=== PATIENT | female | born 1955 | race Caucasian/White ===

== ENCOUNTER 2024-09-11 11:34 | Observation (INO) | payer MEDICARE, BC ==
[~2024-09-11] VITALS: Ht 170.2 cm; Wt 113.1 kg
[2024-09-11] MEDS ORDERED: PANT40TA29 PO (12:33)
[2024-09-11] MEDS ORDERED: CLAR10CA3 PO (12:33)
[2024-09-11] MEDS ORDERED: DULO1CAP6 PO (12:33)
[2024-09-11] MEDS ORDERED: VITAD400CA PO (12:33)
[2024-09-11] MEDS ORDERED: AZEL137S8 NARES (12:33)
[2024-09-11] MEDS ORDERED: ZONI100C67 PO (12:33)
[2024-09-11] MEDS: BOOSTRIX VACCINE (TETANUS/DIPHTH/ACEL. PERTUSSIS) 0.5ML SYR IM ONE (13:19)
[2024-09-11] MEDS: ONDANSETRON 4MG 2ML VIAL IV ONE (14:46)
[2024-09-11] MEDS: MORPHINE 4 MG/ML 1ML VIAL IV ONE (14:47)
[2024-09-11] MEDS ORDERED: HOME MED LIST COMPLETE! XX SCH (16:25)
[2024-09-11] MEDS ORDERED: LORATADINE 10 MG TAB PO PRN (16:40)
[2024-09-11] MEDS ORDERED: MORPHINE 4 MG/ML 1ML VIAL IV PRN (16:40)
[2024-09-11] MEDS ORDERED: PILL CUTTER 1 EACH XX PRN (16:45)
[2024-09-11 17:28] LABS: HEMATOCRIT 43.5 % (36.0-47.0); HEMOGLOBIN 14.2 g/dl (12.0-15.5); MEAN CORPUSCULAR HEMOGLOBIN 29.9 pg (27.0-33.0); MEAN CORPUSCULAR HGB CONC 32.6 g/dl (32.0-36.5); MEAN CORPUSCULAR VOLUME 91.6 fl (80.0-96.0); PLATELET COUNT, AUTOMATED 268 10^3/uL (150-450); RED BLOOD COUNT 4.75 10^6/uL (4.00-5.40); WHITE BLOOD COUNT 10.4 10^3/uL (4.0-10.0)
[2024-09-11] MEDS: ACETAMINOPHEN 325 MG TAB PO PRN (17:30)
[2024-09-11 17:45] LABS: CALCIUM LEVEL 9.5 MG/DL (8.3-10.6); CREATININE FOR GFR 0.8 MG/DL (0.55-1.30); GLOMERULAR FILTRATION RATE 79.7 (>45); POTASSIUM SERUM 4.4 MMOL/L (3.5-5.1)
[2024-09-11 18:07] LABS: LYMPHOCYTES 11 % (16-44); NEUTROPHILS 89 % (28-66); PLATELET ESTIMATE NORMAL (NORMAL)
[2024-09-11] MEDS: VITAMIN D 1,000 INTERNATIONAL UNITS TABLET PO SCH (21:09)
[2024-09-11] MEDS: DULoxetine 30MG CAPSULE (CYMBALTA) PO SCH (21:09)
[2024-09-11] MEDS: ZONISAMIDE 100 MG CAP (ZONEGRAN) PO SCH (21:09)
[2024-09-11] MEDS: AZELASTINE 137MCG NASAL SPY 30 ML (ASTELIN) SCH (21:10)
[2024-09-11 23:00] VITALS: BP 131/86; TEMP 97.3; O2SAT 96
[2024-09-12] VITALS (9 sets, daily range): BP systolic 117–156; BP diastolic 61–87; TEMP 97.3–97.9; O2SAT 91–95
[2024-09-12 06:39] LABS: BASO % 0.4 % (0.0-1.0); HEMATOCRIT 40.1 % (36.0-47.0); LYMPH # 1.2 10^3/uL (1.5-5.0); LYMPH % 21.8 % (24.0-44.0); MEAN CORPUSCULAR HEMOGLOBIN 29.7 pg (27.0-33.0); MEAN CORPUSCULAR HGB CONC 32.4 g/dl (32.0-36.5); MEAN CORPUSCULAR VOLUME 91.6 fl (80.0-96.0); MONO # 0.8 10^3/uL (0.0-0.8); MONO % 14.5 % (2.0-8.0); NEUTROPHILS # 3.3 10^3/uL (1.5-8.5); NEUTROPHILS % 62.9 % (36.0-66.0); PLATELET COUNT, AUTOMATED 244 10^3/uL (150-450); RED BLOOD COUNT 4.38 10^6/uL (4.00-5.40); WHITE BLOOD COUNT 5.3 10^3/uL (4.0-10.0)
[2024-09-12 06:45] LABS: CREATININE FOR GFR 0.91 MG/DL (0.55-1.30); GLOMERULAR FILTRATION RATE 68.3 (>45); POTASSIUM SERUM 4.1 MMOL/L (3.5-5.1)
[2024-09-12] MEDS: PANTOPRAZOLE 40MG TAB (PROTONIX) PO SCH (08:20)
[2024-09-12] MEDS ORDERED: propofoL 200 MG/20 ML VIAL As Ordered ONE (12:54)
[2024-09-12] MEDS ORDERED: LIDOCAINE 2% 100MG/5ML SDV (FOR ANES.) As Ordered ONE (12:54)
[2024-09-12] MEDS ORDERED: ROCURONIUM BROMIDE 50MG/5ML VIAL As Ordered ONE (12:54)
[2024-09-12] MEDS ORDERED: MIDAZOLAM INJ 2MG/2ML VIAL As Ordered ONE (12:55)
[2024-09-12] MEDS ORDERED: ONDANSETRON 4MG 2ML VIAL As Ordered ONE (12:59)
[2024-09-12] MEDS ORDERED: fentaNYL 100 MCG/2 ML INJECTION As Ordered ONE (13:00)
[2024-09-12] MEDS ORDERED: ESMOLOL INJ 100MG/10ML VIAL As Ordered ONE (13:23)
[2024-09-12] MEDS: ceFAZolin SODIUM 2 GM VIAL As Ordered ONE (13:35)
[2024-09-12] MEDS ORDERED: SUGAMMADEX SODIUM 500 MG/5 ML VIAL (BRIDION) As Ordered ONE (13:44)
[2024-09-12] MEDS ORDERED: LABETALOL 100MG/20ML VIAL As Ordered ONE (13:46)
[2024-09-12] MEDS ORDERED: KETOROLAC 30 MG/ML 1ML VIAL As Ordered ONE (14:00)
[2024-09-12] MEDS ORDERED: fentaNYL 100 MCG/2 ML INJECTION IV PRN (14:10)
[2024-09-12] MEDS: BACITRACIN OINTMENT 30GM TUBE As Ordered ONE (14:10)
[2024-09-12] MEDS: HYDROMORPHONE HCL 0.5 MG/ 0.5 ML SYRINGE IV PRN (14:39)
[2024-09-12] MEDS: ONDANSETRON 4MG 2ML VIAL IV PRN (14:40)
[2024-09-12] MEDS: oxyCODONE 5MG TAB PO PRN (14:40)
[2024-09-12] MEDS: LR 1,000 ML IV SCH (15:40)
[2024-09-12] MEDS: ceFAZolin SOD 1 GM in DEXTROSE 5% (D5W) ADV/MINI-BAG 50 ML IV SCH (21:45)
[2024-09-13] VITALS: BP 127/66; TEMP 97.5; O2SAT 95
[2024-09-13 04:00] VITALS: BP 140/72; TEMP 97.5; O2SAT 95
[2024-09-13 07:19] LABS: BASO % 0.2 % (0.0-1.0); HEMATOCRIT 39.9 % (36.0-47.0); HEMOGLOBIN 12.4 g/dl (12.0-15.5); LYMPH # 1.2 10^3/uL (1.5-5.0); LYMPH % 18.5 % (24.0-44.0); MEAN CORPUSCULAR HGB CONC 31.1 g/dl (32.0-36.5); MEAN CORPUSCULAR VOLUME 93.2 fl (80.0-96.0); MONO # 0.7 10^3/uL (0.0-0.8); MONO % 11.1 % (2.0-8.0); NEUTROPHILS # 4.7 10^3/uL (1.5-8.5); PLATELET COUNT, AUTOMATED 234 10^3/uL (150-450); RED BLOOD COUNT 4.28 10^6/uL (4.00-5.40); WHITE BLOOD COUNT 6.7 10^3/uL (4.0-10.0)
[2024-09-13 07:47] LABS: CALCIUM LEVEL 8.8 MG/DL (8.3-10.6); CREATININE FOR GFR 0.97 MG/DL (0.55-1.30); GLOMERULAR FILTRATION RATE 63.3 (>45); POTASSIUM SERUM 3.8 MMOL/L (3.5-5.1)
[2024-09-13] MEDS: KETOROLAC 30 MG/ML 1ML VIAL IV PRN (10:10)
[2024-09-13 12:00] VITALS: BP 118/68; TEMP 97.7; O2SAT 95
[2024-09-13] MEDS: ENOXAPARIN 40MG/0.4ML SYRINGE (J1650 PER 10MG) SC SCH (14:21)
[2024-09-13 19:57] VITALS: BP 151/78; TEMP 97.5; O2SAT 93
[2024-09-14 04:06] VITALS: BP 137/77; TEMP 97.5; O2SAT 94
[2024-09-14 05:53] LABS: BASO % 0.4 % (0.0-1.0); HEMATOCRIT 37.7 % (36.0-47.0); LYMPH # 1.3 10^3/uL (1.5-5.0); LYMPH % 27.3 % (24.0-44.0); MEAN CORPUSCULAR HEMOGLOBIN 29.1 pg (27.0-33.0); MEAN CORPUSCULAR HGB CONC 31.8 g/dl (32.0-36.5); MEAN CORPUSCULAR VOLUME 91.5 fl (80.0-96.0); MONO # 0.5 10^3/uL (0.0-0.8); MONO % 11.6 % (2.0-8.0); NEUTROPHILS # 2.8 10^3/uL (1.5-8.5); NEUTROPHILS % 60.5 % (36.0-66.0); PLATELET COUNT, AUTOMATED 205 10^3/uL (150-450); RED BLOOD COUNT 4.12 10^6/uL (4.00-5.40); WHITE BLOOD COUNT 4.6 10^3/uL (4.0-10.0)
[2024-09-14 06:10] LABS: CALCIUM LEVEL 9.1 MG/DL (8.3-10.6); CREATININE FOR GFR 0.85 MG/DL (0.55-1.30); GLOMERULAR FILTRATION RATE 74.1 (>45); POTASSIUM SERUM 4.4 MMOL/L (3.5-5.1)
[2024-09-14 12:00] VITALS: BP 162/89; TEMP 97.3; O2SAT 96
[2024-09-14 20:26] VITALS: BP 166/97; TEMP 97.7; O2SAT 96
[2024-09-14 20:30] VITALS: BP 166/97; TEMP 97.7; O2SAT 96
[2024-09-15 03:45] VITALS: BP 153/101; TEMP 97.2; O2SAT 93
[2024-09-15 06:00] LABS: BASO % 0.5 % (0.0-1.0); HEMATOCRIT 39.2 % (36.0-47.0); HEMOGLOBIN 12.7 g/dl (12.0-15.5); LYMPH # 1.1 10^3/uL (1.5-5.0); LYMPH % 30.5 % (24.0-44.0); MEAN CORPUSCULAR HEMOGLOBIN 29.5 pg (27.0-33.0); MEAN CORPUSCULAR HGB CONC 32.4 g/dl (32.0-36.5); MEAN CORPUSCULAR VOLUME 91.2 fl (80.0-96.0); MONO # 0.5 10^3/uL (0.0-0.8); MONO % 13.1 % (2.0-8.0); NEUTROPHILS % 55.4 % (36.0-66.0); PLATELET COUNT, AUTOMATED 211 10^3/uL (150-450); WHITE BLOOD COUNT 3.7 10^3/uL (4.0-10.0)
[2024-09-15 06:23] LABS: CALCIUM LEVEL 8.7 MG/DL (8.3-10.6); CREATININE FOR GFR 0.84 MG/DL (0.55-1.30); GLOMERULAR FILTRATION RATE 75.2 (>45); POTASSIUM SERUM 4.2 MMOL/L (3.5-5.1)
[2024-09-15 09:43] VITALS: BP 153/84; TEMP 97.3; O2SAT 96
[2024-09-15 12:00] VITALS: BP 153/84; TEMP 97.3; O2SAT 96
[2024-09-15] MEDS ORDERED: MIRALAX *UNIT DOSE* 17GM PACKET PO PRN (13:50)
[2024-09-15] MEDS ORDERED: SENNA 8.6 MG TAB (SENOKOT) PO PRN (13:50)
[2024-09-15] MEDS: DOCUSATE SODIUM 100MG CAPSULE PO PRN (14:21)
[2024-09-15] MEDS ORDERED: GLUCAGON INJ 1MG VIAL SC PRN (15:15)
[2024-09-15] MEDS ORDERED: GLUCOSE 4 GM CHEW PO PRN (15:15)
[2024-09-15] MEDS ORDERED: DEXTROSE 50% 50ML SYRINGE IV PRN (15:15)
[2024-09-15] MEDS ORDERED: INSULIN LISPRO (NovoLOG) PER UNIT SC SCH ×2 (17:30→21:00)
[2024-09-15 20:53] VITALS: BP 177/86; TEMP 97.3; O2SAT 97
[2024-09-16 05:08] VITALS: BP 143/85; TEMP 97; O2SAT 95
[2024-09-16 05:52] LABS: BASO % 0.4 % (0.0-1.0); HEMOGLOBIN 12.7 g/dl (12.0-15.5); LYMPH # 1.5 10^3/uL (1.5-5.0); MEAN CORPUSCULAR HEMOGLOBIN 29.7 pg (27.0-33.0); MEAN CORPUSCULAR HGB CONC 32.6 g/dl (32.0-36.5); MEAN CORPUSCULAR VOLUME 91.1 fl (80.0-96.0); MONO # 0.6 10^3/uL (0.0-0.8); MONO % 10.5 % (2.0-8.0); NEUTROPHILS # 3.2 10^3/uL (1.5-8.5); NEUTROPHILS % 59.9 % (36.0-66.0); PLATELET COUNT, AUTOMATED 246 10^3/uL (150-450); RED BLOOD COUNT 4.28 10^6/uL (4.00-5.40); WHITE BLOOD COUNT 5.3 10^3/uL (4.0-10.0)
[2024-09-16 06:15] LABS: CALCIUM LEVEL 9.3 MG/DL (8.3-10.6); CREATININE FOR GFR 0.78 MG/DL (0.55-1.30); GLOMERULAR FILTRATION RATE 82.2 (>45); POTASSIUM SERUM 4.1 MMOL/L (3.5-5.1)
[2024-09-16 12:00] VITALS: BP 140/72; TEMP 97.7; O2SAT 94
[2024-09-16 20:20] VITALS: BP 177/98; TEMP 97.5; O2SAT 98
[2024-09-16 21:35] VITALS: BP 143/78; TEMP 97.5; O2SAT 96
[2024-09-17] VITALS (8 sets, daily range): BP systolic 118–144; BP diastolic 65–97; TEMP 97.2–97.8; O2SAT 89–95
[2024-09-17 06:05] LABS: BASO % 0.5 % (0.0-1.0); HEMATOCRIT 37.4 % (36.0-47.0); LYMPH # 1.1 10^3/uL (1.5-5.0); LYMPH % 25.9 % (24.0-44.0); MEAN CORPUSCULAR HEMOGLOBIN 29.3 pg (27.0-33.0); MEAN CORPUSCULAR HGB CONC 32.1 g/dl (32.0-36.5); MEAN CORPUSCULAR VOLUME 91.2 fl (80.0-96.0); MONO # 0.5 10^3/uL (0.0-0.8); MONO % 12.4 % (2.0-8.0); NEUTROPHILS # 2.5 10^3/uL (1.5-8.5); PLATELET COUNT, AUTOMATED 211 10^3/uL (150-450); WHITE BLOOD COUNT 4.1 10^3/uL (4.0-10.0)
[2024-09-17 06:30] LABS: CALCIUM LEVEL 9.1 MG/DL (8.3-10.6); CREATININE FOR GFR 0.8 MG/DL (0.55-1.30); GLOMERULAR FILTRATION RATE 79.7 (>45); POTASSIUM SERUM 4.1 MMOL/L (3.5-5.1)
[2024-09-17 10:09] LABS: APPEARANCE, URINE HAZY (CLEAR); BACTERIA, URINE AUTO NEGATIVE (NEGATIVE); BILIRUBIN, URINE AUTO NEGATIVE (NEGATIVE); BLOOD, URINE BLOOD NEGATIVE (NEGATIVE); COLOR, URINE YELLOW (YELLOW); GLUCOSE, URINE (UA) AUTO NEGATIVE (NEGATIVE); KETONE, URINE AUTO NEGATIVE (NEGATIVE); LEUKOCYTE ESTERASE, URINE AUTO NEGATIVE (NEGATIVE); MUCUS, URINE SMALL (NEGATIVE); NITRITE, URINE AUTO NEGATIVE (NEGATIVE); PROTEIN, URINE AUTO NEGATIVE (NEGATIVE); RBC, URINE AUTO 1 /HPF (0-3); SQUAMOUS EPITHELIAL CELL UR AU 0 /HPF (0-6); UROBILINOGEN, URINE AUTO 0.2 mg/dL (0.0-2.0); WBC, URINE AUTO 1 /HPF (0-3)
[2024-09-17] MEDS ORDERED: ACETAMINOPHEN 1000MG/100ML IV BAG As Ordered ONE (10:59)
[2024-09-17] MEDS: MIDAZOLAM INJ 2MG/2ML VIAL IV PRN (12:07)
[2024-09-17] MEDS: fentaNYL 100 MCG/2 ML INJECTION IV PRN (12:07)
[2024-09-17] MEDS: dexAMETHasone 10MG/1ML VIAL PRES.FREE PN ONE (12:10)
[2024-09-17] MEDS: ROPIvacaine 0.5% 30ML VIAL PN ONE (12:10)
[2024-09-17] MEDS: LIDOCAINE 1% SDV 5ML VIAL PN ONE (12:10)
[2024-09-17] MEDS ORDERED: HYDROmorphone HCL 2MG/ML 1ML VIAL As Ordered ONE (13:36)
[2024-09-17] MEDS: VANCOMYCIN 1000MG/20ML VIAL As Ordered ONE (15:30)
[2024-09-17] MEDS ORDERED: oxyCODONE 5MG TAB PO PRN (15:45)
[2024-09-17] MEDS ORDERED: ONDANSETRON 4MG 2ML VIAL IV PRN (15:45)
[2024-09-17] MEDS ORDERED: fentaNYL 100 MCG/2 ML INJECTION IV PRN (15:45)
[2024-09-17] MEDS: ceFAZolin SODIUM 2 GM in DEXTROSE 5% (D5W) ADV/MINI-BAG 50 ML IV SCH (22:47)
[2024-09-18] VITALS (9 sets, daily range): BP systolic 110–146; BP diastolic 58–91; TEMP 96.8–97.6; O2SAT 86–95
[2024-09-18 06:19] LABS: BASO % 0.1 % (0.0-1.0); HEMATOCRIT 38.5 % (36.0-47.0); HEMOGLOBIN 12.1 g/dl (12.0-15.5); LYMPH # 0.8 10^3/uL (1.5-5.0); LYMPH % 10.1 % (24.0-44.0); MEAN CORPUSCULAR HEMOGLOBIN 28.9 pg (27.0-33.0); MEAN CORPUSCULAR HGB CONC 31.4 g/dl (32.0-36.5); MEAN CORPUSCULAR VOLUME 92.1 fl (80.0-96.0); MONO # 0.7 10^3/uL (0.0-0.8); MONO % 9.6 % (2.0-8.0); NEUTROPHILS # 6.2 10^3/uL (1.5-8.5); NEUTROPHILS % 79.9 % (36.0-66.0); PLATELET COUNT, AUTOMATED 242 10^3/uL (150-450); RED BLOOD COUNT 4.18 10^6/uL (4.00-5.40); WHITE BLOOD COUNT 7.7 10^3/uL (4.0-10.0)
[2024-09-18 06:38] LABS: CALCIUM LEVEL 9.1 MG/DL (8.3-10.6); CREATININE FOR GFR 0.86 MG/DL (0.55-1.30); GLOMERULAR FILTRATION RATE 73.1 (>45); POTASSIUM SERUM 4.2 MMOL/L (3.5-5.1)
[2024-09-18] MEDS ORDERED: ASPI81CH33 PO (11:08)
[2024-09-18] MEDS ORDERED: ACET-897 PO (11:10)
[2024-09-18] MEDS ORDERED: IBUP-1022 PO (11:11)
[2024-09-18] MEDS ORDERED: ENOXAPARIN 40MG/0.4ML SYRINGE (J1650 PER 10MG) SC SCH (14:00)
== END 2024-09-18 14:35 | disposition home health service (06) ==
LOC: M ED 11:34 → EDBD 11:34 → INTOOBSV 16:08 → M ED INP 16:08 → M MSPAV 23:00 → M MS5PR 09-12 13:00
PROVIDERS: ADMIT Internal Medicine; ATTEND Internal Medicine
DX: S93.02XA Subluxation of left ankle joint, initial encounter (principal); W10.8XXA Fall (on) (from) other stairs and steps, initial encounter; Y92.018 Other place in single-family (private) house as the place of occurrence of the external cause; Y99.9 Unspecified external cause status; I34.1 Nonrheumatic mitral (valve) prolapse; G40.909 Epilepsy, unspecified, not intractable, without status epilepticus; J32.9 Chronic sinusitis, unspecified; G47.33 Obstructive sleep apnea (adult) (pediatric); Z88.0 Allergy status to penicillin; Z88.8 Allergy status to other drugs, medicaments and biological substances; R39.15 Urgency of urination; K21.9 Gastro-esophageal reflux disease without esophagitis; Z79.82 Long term (current) use of aspirin; Z79.899 Other long term (current) drug therapy
CPT/HCPCS: 20694; 27818; 27822; 36415; 71046; 73610; 73700; 76000; 80048; 81001; 85025; 90471; 90715; 96365; 96366; 96375; 96376; 97116; 97161; 97164; 97165; 97168; 97530; 97535; 99284; C1713; G0378; J0131; J0690; J1100; J1171; J1650; J1805; J1885; J1920; J2250; J2405; J2795; J3010; J3370

== ENCOUNTER → 2024-09-25 | Outpatient (CLI) | payer MEDICARE, BC ==
[~2024-09-25] MED LIST: ACET-897 PO; ASPI81CH33 PO; AZEL137S8 NARES; CLAR10CA3 PO; DULO1CAP6 PO; IBUP-1022 PO; PANT40TA29 PO; VITAD400CA PO; ZONI100C67 PO
== END ==
LOC: M SOG 07:50
PROVIDERS: ATTEND Physician Assistant
DX: M25.572 Pain in left ankle and joints of left foot (principal)

== ENCOUNTER → 2024-12-18 | Outpatient (CLI) | payer MEDICARE, BC | LOC: M SOG 07:18 | PROVIDERS: ATTEND Physician Assistant | DX: S82.852D Displaced trimalleolar fracture of left lower leg, subsequent encounter for closed fracture with routine healing (principal); M25.531 Pain in right wrist; M17.11 Unilateral primary osteoarthritis, right knee; Y93.9 Activity, unspecified; Y92.9 Unspecified place or not applicable ==